=== PATIENT | female | born 1965 | race Caucasian/White ===

== ENCOUNTER 2017-01-06 16:05 | Emergency (ER) | payer OTHER ==
[~2017-01-06] VITALS: Ht 167.6 cm; Wt 65.0 kg
[~2017-01-06 16:05] MED LIST: DICL75 PO; LEVO.1 PO; NOVOLOGP2 SC; ST J81CH PO
[2017-01-06 16:13] VITALS: BP 156/77; PULSE 71; RESP 16; TEMP 98.4; O2SAT 100
[2017-01-06] MEDS ORDERED: IBUP800T23 PO (16:16)
[2017-01-06] MEDS ORDERED: CYCL1TAB29 PO (16:16)
[2017-01-06] MEDS ORDERED: ORPHENADRINE INJ 60 MG/2 ML AMP IM ONE (16:30)
[2017-01-06] MEDS ORDERED: KETOROLAC TROMETHAMINE 60 MG/2 ML (IM) VIAL IM ONE (16:30)
--- NOTE | 2017-01-06 16:30 | PD ---
HPI Chief Complaint: Musculoskeletal Complaint Time Seen by Provider: 16:16 Travel History International Travel<30 days: No Contact w/Intl Traveler<30days: No Traveled to known affect area: No History of Present Illness HPI 51-year-old female that presents to the ED for evaluation of right lower back pain radiating down the right leg. Per patient she's had this for about 3 weeks but today got more severe after she tried to case picker a table. Per patient the pain now is 10 out of 10. It's been taking OTC meds with minimal relief. Per patient she has a tingling sensation to the lower leg patient was touch. She denies any urinary symptoms. No falls or injuries that she can think of that could've caused this recently. She does have a history of sciatica as a child. Denies any fevers chills or sweats. No other medical issues. No numbness. She does have a history of diabetes and has a pump for it. PFSH Past Medical History Anxiety: Yes Diabetes: Yes Patient Takes Glucophage: No Diminished Hearing: No Hypertension: Yes Respiratory: Yes (STATES SLIGHT EMPHYSEMA AND SLEEP APNEA) ?: Not Menopausal: Yes Social History Alcohol Use: Yes (LIQUOR 4 TIMES WEEK) Tobacco Use: Yes (1/2 PPD) Substance Use: No Allergies-Medications (Allergen,Severity, Reaction): Coded Allergies: levofloxacin (Unverified Allergy, Severe, ITCHING, 01/06/17) Reported Meds & Prescriptions Reported Meds & Active Scripts Active Robaxin (Methocarbamol) 500 Mg Tab 500 Mg PO TID Ketorolac (Ketorolac Tromethamine) 10 Mg Tab 10 Mg PO TID PRN Reported Flexeril (Cyclobenzaprine HCl) 10 Mg Tab 10 Mg PO TID Ibuprofen 800 Mg Tab 800 Mg PO Q6HR PRN Review of Systems Except as stated in HPI: all other systems reviewed are Neg Physical Exam Narrative GENERAL: SKIN: Warm and dry. HEAD: Atraumatic. Normocephalic. EYES: Pupils equal and round. No scleral icterus. No injection or drainage. ENT: No nasal bleeding or discharge. Mucous membranes pink and moist. Tongue is midline. No uvula deviation. NECK: Trachea midline. No JVD. CARDIOVASCULAR: Regular rate and rhythm. RESPIRATORY: No accessory muscle use. Clear to auscultation. Breath sounds equal bilaterally. GASTROINTESTINAL: Abdomen soft, non-tender, nondistended. Hepatic and splenic margins not palpable. MUSCULOSKELETAL: Extremities without clubbing, cyanosis, or edema. No obvious deformities. Full range of motion of the upper and lower extremities bilaterally with pain with range of motion of the right leg especially with straight leg test. Patient has reproducible pain on the right buttocks. No obvious cervical, thoracic, lumbar spine tenderness to palpation. 2+ pulses bilaterally. Neurovascular intact. NEUROLOGICAL: Awake and alert. No obvious cranial nerve deficits. Motor grossly within normal limits. Five out of 5 muscle strength in the arms and legs. Normal speech. PSYCHIATRIC: Appropriate mood and affect; insight and judgment normal. Data Data Last Documented VS Vital Signs Date Time Temp Pulse Resp B/P (MAP) Pulse Ox O2 Delivery O2 Flow Rate FiO2 01/06/17 16:13 98.4 71 16 156/77 (103) 100 Orders Orders Ketorolac Inj (Toradol Inj) (01/06/17 16:30) Orphenadrine Inj (Norflex Inj) (01/06/17 16:30) Ct Lumb Spine W/O Contrast (01/06/17 ) Morphine Inj (Morphine Inj) (01/06/17 16:45) Ondansetron Odt (Zofran Odt) (01/06/17 16:45) MDM Medical Decision Making Medical Screen Exam Complete: Yes Emergency Medical Condition: Yes Medical Record Reviewed: Yes Interpretation(s) CT of lumbar spine negative for acute disease. DJD noted Differential Diagnosis Back pain versus sciatica versus herniated disc versus muscle strain versus muscle spasm Narrative Course 51-year-old female that presents to the ED for evaluation of right lower back pain that radiates down the right leg. Patient was properly examined and was found to have signs and symptoms very consistent what appears to be likely sciatica. Patient does have reproducible symptoms with straight leg test. Imaging was ordered. Patient was given IM pain medications. Imaging showed no sign of acute disease. Multiple DJD as well as some mild herniated disks but more on the left than the right. Patient was reassured. This time I recommend trial of anti-inflammatories and muscle relaxant. Of her narcotic medication but she declined. At this time patient was given prescriptions for Toradol and Robaxin to help her discomfort. She was told to put ice or warm compresses as needed. Rest. No heavy lifting. See ED worsening symptoms. Follow with PCP. Diagnosis Primary Impression: Sciatica of right side Patient Instructions: General Instructions Additional Instructions: Take medications as prescribed. Follow-up with PCP. See ED for any worsening symptoms. Do not drink or drive while taking pain medication. Apply ice or heat as needed for pain Med/Other Pt SpecificInfo: Prescription(s) given Scripts Methocarbamol (Robaxin) 500 Mg Tab 500 MG PO TID for Muscle Spasm, #20 TAB 0 Refills Prov: Rome Logan MD 01/06/17 Ketorolac (Ketorolac) 10 Mg Tab 10 MG PO TID Y for PAIN SCALE 1 TO 10, #20 TAB 0 Refills Prov: Rome Logan MD 01/06/17 Disposition: 01 DISCHARGE HOME Condition: Stable Hunter Barrera Jan 06, 2017 16:30
[2017-01-06] MEDS ORDERED: MORPHINE SULFATE 4 MG/ML INJ IM ONE (16:45)
[2017-01-06] MEDS ORDERED: ONDANSETRON ODT 4 MG TAB PO ONE (16:45)
--- NOTE | 2017-01-06 17:32 | RADRPT ---
EXAM DATE/TIME: 01/06/2017 16:40 [facility] COMPARISON: No previous studies available for comparison. INDICATIONS : Back pain. RADIATION DOSE: 32.43 CTDIvol (mGy) MEDICAL HISTORY : Sleep apnea, emphysema SURGICAL HISTORY : None. ENCOUNTER: Initial ACUITY: 2 days PAIN SCALE: 10/10 LOCATION: low back TECHNIQUE: Volumetric scanning of the lumbar spine was performed. Multiplanar reconstructions in the sagittal, coronal and oblique axial planes were performed. Using automated exposure control and adjustment of the mA and/or kV according to patient size, radiation dose was kept as low as reasonably achievable t o obtain optimal diagnostic quality images. DICOM format image data is available electronically for review and comparison. FINDINGS: VERTEBRAE: Normal vertebral body height. ALIGNMENT: No evidence of subluxation. T12-L1: The thecal sac has a normal diameter. No evidence of disc bulge or protrusion. The neural foramina are patent bilaterally. L1-L2: The thecal sac has a normal diameter. No evidence of disc bulge or protrusion. The neural foramina are patent bilaterally. L2-L3: Broad-based disc bulge. Central canal diameter is mildly narrowed. Mild left neural foraminal narrowi ng. L3-L4: Minimal broad-based disc bulge. No evidence of focal disc protrusion. Central canal normal diameter. Neural foraminal diameters within normal limits. L4-L5: Broad-based disc bulge. Moderate bilateral facet arthrosis. Mild central canal narrowing. Mild right neural foraminal narrowing. L5-S1: Moderate severity bilateral facet arthrosis. Broad-based disc osteophyte complex. Mild left neural fo raminal narrowing. Central canal diameter within normal limits. CONCLUSION: No evidence of fracture. Multilevel degenerative findings. Narciso Coles MD on January 06, 2017 at 17:28 Board Certified Radiologist. This report was verified electronically.
[2017-01-06] MEDS ORDERED: ROBA500T PO (17:36)
[2017-01-06] MEDS ORDERED: KETO10 PO (17:36)
== END 2017-01-06 17:44 | disposition home or self-care (01) ==
LOC: PHEFT 16:05
DX: M54.41 Lumbago with sciatica, right side (principal); E11.9 Type 2 diabetes mellitus without complications; I10 Essential (primary) hypertension; G47.30 Sleep apnea, unspecified
CPT/HCPCS: 72131; 96372; 99285; J1885